=== PATIENT | female | born 1965 | race Caucasian/White ===

== ENCOUNTER 2017-09-16 08:00 | Inpatient (IN) | payer OTHER ==
[2017-09-16] MEDS ORDERED: AMPICILLIN SOD/SULBACTAM 3 GM VIAL IV ONE (08:28)
[2017-09-16] MEDS ORDERED: NORMAL SALINE 1000 ML 1,000 ML IV ONE (08:28)
--- NOTE | 2017-09-16 08:45 | ER Document Report ---
ED General - General Chief Complaint: Facial Swelling Stated Complaint: FACIAL PAIN Time Seen by Provider: 09/16/17 08:21 Mode of Arrival: Ambulatory Information source: Patient Notes: 52-year-old female presents with one-week duration of facial swelling and pain. Patient denies any fevers or chills notes she was seen by her primary care physician initially was given eyedrops. Patient notes that she then started having facial redness and swelling. Patient states that she was then placed on Bactrim and Keflex has taken 5 doses of the Keflex since and has noted worsening rash TRAVEL OUTSIDE OF THE [place] IN LAST 30 DAYS: No - HPI Onset: Last week Onset/Duration: Worse Quality of pain: Burning Severity: Mild Pain Level: 1 Associated symptoms: Other Exacerbated by: Denies Relieved by: Denies Similar symptoms previously: Yes Recently seen / treated by doctor: Yes - Related Data Allergies/Adverse Reactions: No Known Allergies Allergy (Verified 09/16/17 08:01) Past Medical History - Social History Smoking Status: Never Smoker Cigarette use (# per day): No Chew tobacco use (# tins/day): No Smoking Education Provided: No Family History: Reviewed & Not Pertinent - Past Medical History Cardiac Medical History: Reports: Hx Hypertension Denies: Hx Coronary Artery Disease, Hx Heart Attack Pulmonary Medical History: Denies: Hx Asthma, Hx Bronchitis, Hx COPD, Hx Pneumonia Neurological Medical History: Denies: Hx Cerebrovascular Accident, Hx Seizures Musculoskeltal Medical History: Denies Hx Arthritis Past Surgical History: Reports: Hx Section - x2, Hx Cholecystectomy, Hx Hysterectomy. Denies: Hx Pacemaker - Immunizations Hx Diphtheria, Pertussis, Tetanus Vaccination: Yes Hx Pneumococcal Vaccination: 06/25/11 Review of Systems - Review of Systems Notes: REVIEW OF SYSTEMS: CONSTITUTIONAL : Denies fever, chills, or sweats. Denies recent illness. EENT: Denies eye, ear, throat, or mouth pain or symptoms. Denies nasal or sinus congestion or discharge. Denies throat, tongue, or mouth swelling or difficulty swallowing. CARDIOVASCULAR: Denies chest pain. Denies palpitations or racing or irregular heart beat. Denies ankle edema. RESPIRATORY: Denies cough, cold, or chest congestion. Denies shortness of breath, difficulty breathing, or wheezing. GASTROINTESTINAL: Denies abdominal pain or distention. Denies nausea, vomiting , or diarrhea. Denies blood in vomitus, stools, or per rectum. Denies black, tarry stools. Denies constipation. GENITOURINARY: Denies difficulty urinating, painful urination, burning, frequency, blood in urine, or discharge. FEMALE GENITOURINARY: Denies vaginal bleeding, heavy or abnormal periods, irregular periods. Denies vaginal discharge or odor. MUSCULOSKELETAL: Denies back or neck pain or stiffness. Denies joint pain or swelling. SKIN: Admits to facial swelling redness HEMATOLOGIC : Denies easy bruising or bleeding. LYMPHATIC: Denies swollen, enlarged glands. NEUROLOGICAL: Denies confusion or altered mental status. Denies passing out or loss of consciousness. Denies dizziness or lightheadedness. Denies headache. Denies weakness or paralysis or loss of use of either side. Denies problems with gait or speech. Denies sensory loss, numbness, or tingling. Denies seizures. PSYCHIATRIC: Denies anxiety or stress. Denies depression, suicidal ideation, or homicidal ideation. ALL OTHER SYSTEMS REVIEWED AND NEGATIVE. PHYSICAL EXAMINATION: GENERAL: Well-appearing, well-nourished and in no acute distress. HEAD: Atraumatic, normocephalic. EYES: Pupils equal round and reactive to light, extraocular movements intact, conjunctiva are normal. ENT: Nares patent, oropharynx clear without exudates. Moist mucous membranes. NECK: Normal range of motion, supple without lymphadenopathy LUNGS: Breath sounds clear to auscultation bilaterally and equal. No wheezes rales or rhonchi. HEART: Regular rate and rhythm without murmurs ABDOMEN: Soft, nontender, nondistended abdomen. No guarding, no rebound. No masses appreciated. Female : deferred Musculoskeletal: Normal range of motion, no pitting or edema. No cyanosis. NEUROLOGICAL: Cranial nerves grossly intact. Normal speech, normal gait. Normal sensory, motor exams PSYCH: Normal mood, normal affect. SKIN: Bilateral erythema cellulitic component of cheeks mid forehead upper lip across the nose Dictation was performed using [employer] voice recognition software Physical Exam - Vital signs Vitals: Temp Pulse Resp BP Pulse Ox 98.5 F 100 16 101/84 97 09/16/17 08:05 09/16/17 08:05 09/16/17 08:05 09/16/17 08:05 09/16/17 08:05 Course - Re-evaluation Re-evalutation: 09/16/17 11:01 Ct consistent with cellulitis, pt was on her 5th dose of keflex this morning at 2am and noted worsening symptoms , will admit to hospitlaist for iv antiobitics - Vital Signs Vital signs: Temp Pulse Resp BP Pulse Ox 98.5 F 100 16 101/84 97 09/16/17 08:05 09/16/17 08:05 09/16/17 08:05 09/16/17 08:05 09/16/17 08:05 - Laboratory Result Diagrams: 09/16/17 08:40 09/16/17 08:40 Laboratory results interpreted by me: 09/16/17 09/16/17 08:40 08:40 WBC 12.6 H RDW 14.5 H Seg Neutrophils % 79.1 H Lymphocytes % 12.7 L Absolute Neutrophils 9.9 H Chloride 96 L Est GFR (Non-Af Amer) 51 L Glucose 138 H AST 38 H ALT 60 H Discharge - Discharge Clinical Impression: Facial cellulitis Condition: Stable Disposition: ADMITTED INPATIENT Admitting Provider: Hospitalist Unit Admitted: Medical Floor
[2017-09-16 09:19] LABS: ABSOLUTE EOSINOPHILS # (AUTO) 0.1 10^3/uL (0.0-0.6); ABSOLUTE LYMPHOCYTES (AUTO) 1.6 10^3/uL (0.5-4.7); ABSOLUTE MONOCYTES (AUTO) 0.9 10^3/uL (0.1-1.4); ABSOLUTE NEUT (AUTO) 9.9 10^3/uL (1.7-8.2); BASOPHILS % (AUTO) 0.2 % (0-2); EOSINOPHILS % (AUTO) 1.1 % (0-6); HEMOGLOBIN 14.8 g/dL (12.0-15.5); HGB HCT DIFFERENCE 1.4; LYMPHOCYTES % (AUTO) 12.7 % (13-45); MEAN CORPUSCULAR HEMOGLOBIN 30.6 pg (27.0-33.4); MEAN CORPUSCULAR HGB CONC 34.5 g/dL (32.0-36.0); MEAN CORPUSCULAR VOLUME 89 fl (80-97); MONOCYTES % (AUTO) 6.9 % (3-13); RED BLOOD COUNT 4.84 10^6/uL (3.72-5.28); RED CELL DISTRIBUTION WIDTH 14.5 % (11.5-14.0); SEGMENTED NEUTROPHILS % (AUTO) 79.1 % (42-78); WHITE BLOOD COUNT 12.6 10^3/uL (4.0-10.5)
[2017-09-16 09:30] LABS: ALANINE AMINOTRANSFERASE 60 U/L (9-52); ALBUMIN 4.3 g/dL (3.5-5.0); ALKALINE PHOSPHATASE 84 U/L (38-126); ANION GAP 16 (5-19); ASPARTATE AMINO TRANSFERASE 38 U/L (14-36); BILIRUBIN,DIRECT 0.3 mg/dL (0.0-0.4); BILIRUBIN,TOTAL 0.5 mg/dL (0.2-1.3); BLOOD UREA NITROGEN 16 mg/dL (7-20); CALCIUM 9.7 mg/dL (8.4-10.2); CARBON DIOXIDE 25 mmol/L (22-30); CHLORIDE 96 mmol/L (98-107); CREATININE RESULT 1.11 mg/dL (0.52-1.25); GLUCOSE 138 mg/dL (75-110); POTASSIUM 4.1 mmol/L (3.6-5.0); SODIUM 137.4 mmol/L (137-145); TOTAL PROTEIN 7.6 g/dL (6.3-8.2)
--- NOTE | 2017-09-16 10:55 | RADIOLOGY REPORT (SQ) ---
EXAM DESCRIPTION: CT FACIAL AREA WITH COMPLETED DATE/TIME: 09/16/2017 10:38 am REASON FOR STUDY: facial cellulitis COMPARISON: None. TECHNIQUE: Post contrast images through the facial bones and orbits windowed for bone and soft tissu e. Additional coronal and sagittal reconstructed images reviewed. All images stored on PACS. All CT scanners at this facility use dose modulation, iterative reconstruction, and/or weight based d osing when appropriate to reduce radiation dose to as low as reasonably achievable (ALARA). [facility]: Dose Right [facility]: CareDose [facility]: Dose Right [facility]: Teradose 4D [facility]: Callix [place] CONTRAST TYPE AND DOSE: contrast/concentration: Isovue 370.00 mg/ml; Total Contrast Delivered: 75.0 ml; Total Saline Delivered: 55.0 ml RENAL FUNCTION: Creatinine measures 1.11 RADIATION DOSE: CT Rad equipment meets quality standard of care and radiation dose reduction techniq ues were employed. CTDIvol: 30.4 mGy. DLP: 663 mGy-cm. . LIMITATIONS: None. FINDINGS: FACIAL BONES: No fracture or bone lesion. ORBITS: Intact. No fracture. Symmetric intact globes and retroorbital soft tissues. PARANASAL SINUSES: Clear. No significant mucosal thickening, mass or fluid. No nasal polyps. Maxilla ry sinus outlets are patent. SOFT TISSUES: Bilateral premaxillary and periorbital soft tissue swelling without involvement of the deeper soft tissues. INFERIOR BRAIN: Limited view. No acute findings. OTHER: No other significant finding. IMPRESSION: BILATERAL PREMAXILLARY AND PERIORBITAL SOFT TISSUE SWELLING COMPATIBLE WITH CELLULITIS. NO ABSCESS OR INVOLVEMENT OF THE DEEP SOFT TISSUES TECHNICAL DOCUMENTATION: JOB ID: [id number] Quality ID # [id number]: Final reports with documentation of one or more dose reduction techniques (e.g., Au tomated exposure control, adjustment of the mA and/or kV according to patient size, use of iterative reconstruction technique) 2010 [employer]- All Rights Reserved
[2017-09-16] MEDS ORDERED: ONDANSETRON 4 MG TAB.RAPDIS PO PRN (12:37)
[2017-09-16] MEDS ORDERED: LEVALBUTEROL HCL NEB 0.63 MG/3 ML AMPUL NEB PRN (12:37)
[2017-09-16] MEDS ORDERED: ONDANSETRON HCL INJ/PF 4 MG/2 ML SDV IV PRN (12:37)
[2017-09-16] MEDS ORDERED: NORMAL SALINE 1000 ML 1,000 ML IV PRN (12:37)
[2017-09-16] MEDS ORDERED: ACETAMINOPHEN 325 MG TABLET PO PRN (12:37)
--- NOTE | 2017-09-16 12:55 | PDOC H&P ---
History of Present Illness Admission Date/PCP: 09/16/17 11:13 ELMIRA HUNT DO Patient complains of: Redness and swelling of the face History of Present Illness: ROMARIO AREVALO is a 52 year old female who has a history of hypertension who presented to her primary care doctor on Monday with complaints of some redness and swelling on the malar area of her face bilaterally. Patient was started on Bactrim and Keflex and was sent home. Since that time she has had worsening redness and swelling. She presents and has significant soft tissue swelling and this is involving the entire nose, bilateral malar area as well as the bridge of the nose and forehead. He also reports having some low-grade fevers. She has been taking her antibiotics. She also does take lisinopril but denies having any shortness of breath or airway obstruction symptoms. Patient is admitted for treatment of facial cellulitis possible erysipelas. Past Medical History Cardiac Medical History: Reports: Hyperlipidema, Hypertension Denies: Coronary Artery Disease, Myocardial Infarction Pulmonary Medical History: Denies: Asthma, Bronchitis, Chronic Obstructive Pulmonary Disease (COPD), Pneumonia EENT Medical History: Reports: None Neurological Medical History: Reports: None Endocrine Medical History: Reports: None Renal/ Medical History: Reports: None Malignancy Medical History: Reports: None GI Medical History: Reports: None Musculoskeltal Medical History: Denies: Arthritis Skin Medical History: Reports: None Psychiatric Medical History: Reports: None Traumatic Medical History: Reports: None Hematology: Reports: None Denies: Anemia Infectious Medical History: Reports: None Past Surgical History Past Surgical History: Reports: Section - x2, Cholecystectomy, Hysterectomy Denies: Pacemaker Social History Information Source: Patient Lives with: Spouse/Significant other Smoking Status: Never Smoker Frequency of Alcohol Use: Rare Hx Recreational Drug Use: No Drugs: None Hx Prescription Drug Abuse: No - Advance Directive Resuscitation Status: Full Code Surrogate healthcare decision maker:: Family History Family History: Mother at age 65 from COPD and cancer. Father at age 46 from coronary artery disease. Parental Family History Reviewed: Yes Children Family History Reviewed: No Sibling(s) Family History Reviewed.: No Medication/Allergy Home Medications: Aspirin [Aspirin 81 mg Chewable Tablet] 81 mg PO DAILY 09/05/12 Cinnamon Bark [Cinnamon Bark 500 mg Capsule] 2 cap PO DAILY 09/05/12 [place]-3/Dha/Epa/Fish Oil [Fish Oil 1,000 mg Softgel] 4 cap PO DAILY 09/05/12 Ibuprofen [Motrin 800 Mg Tablet] 800 mg PO Q8H PRN 09/12/12 Meloxicam [Mobic 15 mg Tablet] 15 mg PO DAILY 12/05/16 Phentermine HCl 37.5 mg PO DAILY 12/05/16 Cyanocobalamin (Vitamin B-12) [B-12] 1,000 mcg PO DAILY 12/06/16 Lisinopril 10 mg PO DAILY 12/06/16 Mv,Calcium,Min/Iron/Folic/Vitk [Multi For Her Tablet] 1 each PO DAILY 12/06/16 Allergies/Adverse Reactions: No Known Allergies Allergy (Verified 09/16/17 08:01) Review of Systems Constitutional: PRESENT: fever(s). ABSENT: chills, headache(s), weight gain, weight loss Eyes: ABSENT: visual disturbances Nose, Mouth, and Throat: PRESENT: other - Facial swelling and erythema Cardiovascular: ABSENT: chest pain, dyspnea on exertion, edema, orthropnea, palpitations Respiratory: ABSENT: cough, hemoptysis Gastrointestinal: ABSENT: abdominal pain, constipation, diarrhea, hematemesis, hematochezia, nausea, vomiting Genitourinary: ABSENT: dysuria, hematuria Musculoskeletal: ABSENT: joint swelling Integumentary: PRESENT: as per HPI Neurological: ABSENT: abnormal gait, abnormal speech, confusion, dizziness, focal weakness, syncope Psychiatric: ABSENT: anxiety, depression Endocrine: ABSENT: cold intolerance, heat intolerance, polydipsia, polyuria Hematologic/Lymphatic: ABSENT: easy bleeding, easy bruising Physical Exam Vital Signs: Temp Pulse Resp BP Pulse Ox 97.6 F 79 18 108/66 100 09/16/17 12:11 09/16/17 12:11 09/16/17 12:11 09/16/17 12:11 09/16/17 12:11 Intake & Output 09/15/17 09/16/17 09/17/17 06:59 06:59 06:59 Weight 79 kg General appearance: PRESENT: no acute distress, well-developed, well-nourished Head exam: PRESENT: atraumatic, normocephalic Eye exam: PRESENT: conjunctiva pink, EOMI, periorbital swelling, PERRLA. ABSENT : scleral icterus Ear exam: PRESENT: normal external ear exam Mouth exam: PRESENT: moist, tongue midline Neck exam: ABSENT: carotid bruit, JVD, lymphadenopathy, thyromegaly Respiratory exam: PRESENT: clear to auscultation chelle. ABSENT: rales, rhonchi, wheezes Cardiovascular exam: PRESENT: RRR. ABSENT: diastolic murmur, rubs, systolic murmur Pulses: PRESENT: normal dorsalis pedis pul Vascular exam: PRESENT: normal capillary refill GI/Abdominal exam: PRESENT: normal bowel sounds, soft. ABSENT: distended, guarding, mass, organolmegaly, rebound, tenderness Rectal exam: PRESENT: deferred Extremities exam: ABSENT: calf tenderness, clubbing, pedal edema Neurological exam: PRESENT: alert, awake, oriented to person, oriented to place , oriented to time, oriented to situation, CN II-XII grossly intact. ABSENT: motor sensory deficit Psychiatric exam: PRESENT: appropriate affect Skin exam: PRESENT: vesicles - Vesicles on the right malar area, other - Erythema and swelling involving the entire nose, bilateral malar area, bridge of nose, mid forehead region. Results Impressions: Facial Bones CT 09/16/17 08:28 IMPRESSION: BILATERAL PREMAXILLARY AND PERIORBITAL SOFT TISSUE SWELLING COMPATIBLE WITH CELLULITIS. NO ABSCESS OR INVOLVEMENT OF THE DEEP SOFT TISSUES Assessment & Plan - Diagnosis (1) Facial cellulitis Is this a current diagnosis for this admission?: Yes Plan: The patient has a lot of soft tissue swelling in addition to the erythema. Suspicious for erysipelas. Will treat with Unasyn and steroids. Because she does take an LILI inhibitor the possibility of angioedema is considered but is unlikely. We will hold her LILI inhibitor for now. (2) Hypertension Is this a current diagnosis for this admission?: Yes Plan: We will hold the lisinopril and start another blood pressure medication if her pressures are up. (3) Hyperlipidemia Is this a current diagnosis for this admission?: Yes Plan: Patient takes fish oil as an outpatient. - Time Time Spent: 50 to 70 Minutes - Inpatient Certification Medical Necessity: Need for IV Antibiotics
[2017-09-16] MEDS: OXYCODONE HCL IR 5 MG TABLET PO PRN ×2 (13:06→21:21)
[2017-09-16] MEDS: METHYLPREDNISOLONE INJ 40 MG/1 ML SDV IV SCH ×2 (13:12→21:21)
[2017-09-16] MEDS: AMPICILLIN SODIUM/SULBACTAM NA 1.5 GM in NORMAL SALINE 50 ML IV SCH ×2 (17:15→23:54)
[2017-09-16] MEDS: FAMOTIDINE 20 MG TABLET PO SCH (21:21)
[2017-09-17 05:18] LABS: ANION GAP 10 (5-19); BLOOD UREA NITROGEN 15 mg/dL (7-20); CALCIUM 9.1 mg/dL (8.4-10.2); CARBON DIOXIDE 23 mmol/L (22-30); CHLORIDE 106 mmol/L (98-107); CREATININE RESULT 0.93 mg/dL (0.52-1.25); GLUCOSE 207 mg/dL (75-110); SODIUM 138.9 mmol/L (137-145)
[2017-09-17] MEDS: AMPICILLIN SODIUM/SULBACTAM NA 1.5 GM in NORMAL SALINE 50 ML IV SCH ×2 (05:26→11:23)
[2017-09-17] MEDS: METHYLPREDNISOLONE INJ 40 MG/1 ML SDV IV SCH (05:27)
[2017-09-17 05:32] LABS: HEMOGLOBIN 13.6 g/dL (12.0-15.5); HGB HCT DIFFERENCE 0.8; MEAN CORPUSCULAR HEMOGLOBIN 29.9 pg (27.0-33.4); MEAN CORPUSCULAR VOLUME 88 fl (80-97); RED BLOOD COUNT 4.54 10^6/uL (3.72-5.28); RED CELL DISTRIBUTION WIDTH 14.1 % (11.5-14.0); WHITE BLOOD COUNT 15.3 10^3/uL (4.0-10.5)
[2017-09-17] MEDS ORDERED: DEXTROSE 40% GEL 15 GM TUBE PO PRN ×2 (07:27)
[2017-09-17] MEDS ORDERED: INSULIN LISPRO 100 UNIT/ML 3 ML VIAL SUBCUT PRN (07:27)
[2017-09-17] MEDS ORDERED: DEXTROSE 50%-WATER 25 GM/50 ML DISP.SYRIN IV PRN ×2 (07:27)
[2017-09-17] MEDS ORDERED: GLUCAGON,HUMAN RECOMB 1 MG INJ IM PRN (07:27)
[2017-09-17 08:10] VITALS: BP 115/66
[2017-09-17] MEDS: FAMOTIDINE 20 MG TABLET PO SCH (09:20)
--- NOTE | 2017-09-17 13:51 | PDOC DISCHARGE SUMMARY ---
General - Admit/Disc Date/PCP Admission Date/Primary Care Provider: 09/16/17 11:13 ELMIRA HUNT, Discharge Date: 09/17/17 - Discharge Diagnosis (1) Facial cellulitis Is this a current diagnosis for this admission?: Yes (2) Hypertension Is this a current diagnosis for this admission?: Yes (3) Hyperlipidemia Is this a current diagnosis for this admission?: Yes - Additional Information Resuscitation Status: Full Code Discharge Diet: Diabetic Discharge Activity: Activity As Tolerated Prescriptions: Amoxicillin/Potassium Clav [Augmentin 875-125 Tablet] 1 each PO BID #20 tablet Prednisone 10 mg PO DAILY #39 tablet Home Medications: Aspirin [Aspirin 81 mg Chewable Tablet] 81 mg PO DAILY 09/16/17 Cinnamon Bark [Cinnamon Bark 500 mg Capsule] 500 mg PO DAILY 09/16/17 Cyanocobalamin (Vitamin B-12) [Vitamin B-12 1000 mcg Tablet] 1,000 mcg PO DAILY 09/16/17 Multivit with Calcium,Iron,Min [Multiple Vitamins For Women] 1 each PO DAILY [place]-3 Fatty Acids/Fish Oil [Fish Oil 1,000 mg Capsule] 4 cap PO DAILY Phentermine HCl 37.5 mg PO DAILY 09/16/17 Amoxicillin/Potassium Clav [Augmentin 875-125 Tablet] 1 each PO BID #20 tablet 09/17/17 Prednisone 10 mg PO DAILY #39 tablet 09/17/17 History of Present Illness History of Present Illness: ROMARIO AREVALO is a 52 year old female who has a history of hypertension who presented to her primary care doctor on Monday with complaints of some redness and swelling on the malar area of her face bilaterally. Patient was started on Bactrim and Keflex and was sent home. Since that time she has had worsening redness and swelling. She presents and has significant soft tissue swelling and this is involving the entire nose, bilateral malar area as well as the bridge of the nose and forehead. He also reports having some low-grade fevers. She has been taking her antibiotics. She also does take lisinopril but denies having any shortness of breath or airway obstruction symptoms. Patient is admitted for treatment of facial cellulitis possible erysipelas. Hospital Course Hospital Course: 52-year-old female who presented with facial cellulitis and possible erysipelas. The patient was started on Unasyn and Solu-Medrol. She had a dramatic improvement in her facial swelling and redness overnight. She had cultures done which are negative so far. Patient has had such a quick improvement feel that she is stable for discharge to home on a course of Augmentin and prednisone. The patient had the lisinopril stopped because the possibility of allergic reaction I have instructed her to hold that until she follows up with her primary care doctor decide whether or not to restart that. Patient also was noted to have elevated blood sugars most likely associated with the steroids. Patient is follow-up with primary care in 2 weeks. Physical Exam Vital Signs: Temp Pulse Resp BP Pulse Ox 97.5 F 78 18 115/66 99 09/17/17 07:38 09/17/17 07:38 09/17/17 07:38 09/17/17 07:38 09/17/17 07:38 Intake & Output 09/16/17 09/17/17 09/18/17 06:59 06:59 06:59 Intake Total 3092 Balance 3092 Weight 79 kg General appearance: PRESENT: no acute distress Eye exam: PRESENT: conjunctiva pink. ABSENT: scleral icterus Neck exam: ABSENT: JVD Respiratory exam: PRESENT: clear to auscultation chelle. ABSENT: rales, rhonchi, wheezes Cardiovascular exam: PRESENT: RRR. ABSENT: diastolic murmur, rubs, systolic murmur GI/Abdominal exam: PRESENT: normal bowel sounds, soft. ABSENT: distended, guarding, mass, organolmegaly, rebound, tenderness Neurological exam: PRESENT: alert, awake, oriented to person, oriented to place , oriented to time, oriented to situation, CN II-XII grossly intact. ABSENT: motor sensory deficit Psychiatric exam: PRESENT: appropriate affect Skin exam: PRESENT: other - Erythema over the entire nose, malar area bilaterally as well as mid forehead. It is substantially reduced from yesterday. Results Laboratory Results: 09/17/17 04:25 09/17/17 04:25 09/17/17 09/17/17 04:25 04:25 WBC 15.3 H RBC 4.54 Hgb 13.6 Hct 40.0 MCV 88 MCH 29.9 MCHC 34.0 RDW 14.1 H Plt Count 189 Sodium 138.9 Potassium 5.0 Chloride 106 Carbon Dioxide 23 Anion Gap 10 BUN 15 Creatinine 0.93 Est GFR ( Amer) > 60 Est GFR (Non-Af Amer) > 60 Glucose 207 H Calcium 9.1 Impressions: Facial Bones CT 09/16/17 08:28 IMPRESSION: BILATERAL PREMAXILLARY AND PERIORBITAL SOFT TISSUE SWELLING COMPATIBLE WITH CELLULITIS. NO ABSCESS OR INVOLVEMENT OF THE DEEP SOFT TISSUES Qualifiers [place]INT BEING DISCHARGED WITH ANY OF THE FOLLOWING DIAGNOSIS?: No Plan Discharge Plan: Patient follow-up with primary care in 2 weeks. Patient discharged home Time Spent: Less than 30 Minutes
== END 2017-09-17 12:50 | disposition home or self-care (01) | DRG 603 ==
LOC: ER 08:00 → EH 11:13 → 4S 12:10
PROVIDERS: ADMIT Internal Medicine; ATTEND Internal Medicine
DX: L03.211 Cellulitis of face (principal); I10 Essential (primary) hypertension; E78.5 Hyperlipidemia, unspecified; Z79.82 Long term (current) use of aspirin; Z79.899 Other long term (current) drug therapy; Z90.49 Acquired absence of other specified parts of digestive tract; Z90.710 Acquired absence of both cervix and uterus; Z82.49 Family history of ischemic heart disease and other diseases of the circulatory system
CPT/HCPCS: 36415; 70487; 80048; 80053; 82962; 85025; 85027; 96365; 99285; J0295; J1815; J2920; J7030

== ENCOUNTER → 2019-02-01 | Outpatient (CLI) | payer OTHER ==
--- NOTE | 2019-02-01 13:27 | RADIOLOGY REPORT (SQ) ---
EXAM DESCRIPTION: FOOT LEFT COMPLETE COMPLETED DATE/TIME: 02/01/2019 12:09 pm REASON FOR STUDY: M84.375A STRESS FRACTURE, LEFT FOOT, INITIAL ENCOUNTER FOR FRACTURE M84.375A STRE SS FRACTURE, LEFT FOOT, INITIAL ENCOUNTER FOR F COMPARISON: None. NUMBER OF VIEWS: Three views. TECHNIQUE: AP, lateral and oblique radiographic images acquired of the left foot. LIMITATIONS: None. FINDINGS: MINERALIZATION: Normal. BONES: No acute fracture or dislocation. Bipartite tibial sesamoid bone overlies the head of the fir st metatarsal bone, normal anatomic variant. Accessory cuboid bone, normal variant. Calcaneal spurs . JOINTS: No effusions. SOFT TISSUES: No soft tissue swelling. No foreign body. OTHER: No other significant finding. IMPRESSION: 1. No acute osseous findings. 2. Calcaneal spurs. TECHNICAL DOCUMENTATION: JOB ID: [id number] [employer]- All Rights Reserved Reading location - IP/workstation name: [email or web address]
== END ==
LOC: RAD 11:43
PROVIDERS: ATTEND Podiatrist Foot & Ankle Surgery
DX: M84.375A Stress fracture, left foot, initial encounter for fracture (principal)

== ENCOUNTER → 2019-08-02 | Outpatient (CLI) | payer OTHER ==
--- NOTE | 2019-08-02 13:44 | WOMENS IMAGING REPORT ---
EXAM DESCRIPTION: BILAT SCREENING MAMMO W/CAD COMPLETED DATE/TIME: 08/02/2019 1:31 pm REASON FOR STUDY: Z12.31 SCREENING MAMMO Z12.31 ENCNTR SCREEN MAMMOGRAM FOR MALIGNANT NEOPLASM OF B RE COMPARISON: None. EXAM PARAMETERS: Standard craniocaudal and mediolateral oblique views of each breast recorded using digital acquisition. Read with the assistance of CAD. .[facility] - [employer] Brake [employer]iner Version 9.2 LIMITATIONS: None. FINDINGS: No suspicious masses, suspicious calcifications or architectural distortion. No areas of c oncern. IMPRESSION: Negative MAMMOGRAM. BIRADS 1 BREAST DENSITY: a. The breasts are almost entirely fatty. BIRAD: ASSESSMENT: 1 NEGATIVE RECOMMENDATION: ROUTINE SCREENING COMMENT: The patient has been notified of the results by letter per MQSA requirements. Additional no tification policies are in place for contacting patient with suspicious or incomplete findings. Quality ID #225: The [employer] recommends an annual screening mammogram for women aged 40 years or over. This facility utilizes a reminder system to ensure that all patients receive reminder letters, and/or direct phone calls for appointments. This includes reminders for routine scr eening mammograms, diagnostic mammograms, or other Breast Imaging Interventions when appropriate. Th is patient will be placed in the appropriate reminder system. TECHNICAL DOCUMENTATION: FINDING NUMBER: (1) ASSESSMENT: (1) JOB ID: [id number] [email or web address]- All Rights Reserved Reading location - IP/workstation name: [email or web address]
== END ==
LOC: WI 13:10
PROVIDERS: ATTEND Family Medicine
DX: Z12.31 Encounter for screening mammogram for malignant neoplasm of breast (principal)
CPT/HCPCS: 77067

== ENCOUNTER → 2019-10-05 | Outpatient (CLI) | payer OTHER ==
--- NOTE | 2019-10-05 13:54 | RADIOLOGY REPORT (SQ) ---
EXAM DESCRIPTION: MRI LT LOWER EXTREMITY WITHOUT COMPLETED DATE/TIME: 10/05/2019 8:47 am REASON FOR STUDY: S93.149D SUBLUXATION OF METATARSOPHALANGEAL JOINT OF UNSECIFIED TOE S93.149D SUBL UXATION OF MTP JOINT OF UNSP TOE(S), SUBS COMPARISON: None. TECHNIQUE: T1-weighted, T2-weighted, and gradient echo noncontrast multiplanar imaging of the left f oot. LIMITATIONS: None. FINDINGS: MARROW SIGNAL: No marrow signal alteration. No occult fracture. No evidence for osteo ne crosis. JOINT EFFUSION: No significant effusions. PLANTAR FASCIA: Normal as visualized. TARSOMETATARSAL AND TOE ARTICULATIONS: Anatomic. Mild degenerative changes first metatarsal phalange al joint. Includes minimal edema in the medial hallux sesamoid which is likely degenerative with tin y cysts. INTERMETATARSAL SPACES AND PLANTAR PLATES: Generally normal. No evidence of neuroma or gross plantar plate tear. SOFT TISSUES: No masses. No fibrosis. OTHER: No other significant finding. IMPRESSION: 1. Plantar plates intact. No neuroma. Mild great toe degenerative changes. TECHNICAL DOCUMENTATION: JOB ID: [id number] [employer]- All Rights Reserved Reading location - IP/workstation name: [email or web address]
== END ==
LOC: RAD 07:58
PROVIDERS: ATTEND Podiatrist Foot & Ankle Surgery
DX: S93.149D Subluxation of metatarsophalangeal joint of unspecified toe(s), subsequent encounter (principal); X58.XXXD Exposure to other specified factors, subsequent encounter

== ENCOUNTER → 2020-08-07 | Outpatient (CLI) | payer MEDICAID, OTHER ==
--- NOTE | 2020-08-07 10:11 | WOMENS IMAGING REPORT ---
EXAM DESCRIPTION: 3D SCREENING MAMMO BILAT IMAGES COMPLETED DATE/TIME: 08/07/2020 7:34 am REASON FOR STUDY: ROUTINE BILATERAL SCREENING;Z12.31 Z12.31 ENCNTR SCREEN MAMMOGRAM FOR MALIGNANT N EOPLASM OF LC COMPARISON: 2018. EXAM PARAMETERS: Views: Standard craniocaudal and mediolateral oblique views of each breast recorded using digital acquisition and breast tomosynthesis. Read with the assistance of CAD. [facility] - [employer] Version 9.2 LIMITATIONS: None. FINDINGS: No suspicious masses, suspicious calcifications or architectural distortion. No areas of c oncern. IMPRESSION: NEGATIVE MAMMOGRAM. BIRADS 1. BREAST DENSITY: b. There are scattered areas of fibroglandular density. BIRAD: ASSESSMENT: 1 NEGATIVE RECOMMENDATION: ROUTINE SCREENING COMMENT: The patient has been notified of the results by letter per MQSA requirements. Additional no tification policies are in place for contacting patient with suspicious or incomplete findings. Quality ID #225: The [employer] recommends an annual screening mammogram for women aged 40 years or over. This facility utilizes a reminder system to ensure that all patients receive reminder letters, and/or direct phone calls for appointments. This includes reminders for routine scr eening mammograms, diagnostic mammograms, or other Breast Imaging Interventions when appropriate. Th is patient will be placed in the appropriate reminder system. TECHNICAL DOCUMENTATION: FINDING NUMBER: (1) ASSESSMENT: (1) JOB ID: [id number] 2010 [email or web address]- All Rights Reserved Reading location - IP/workstation name: [email or web address]
--- OUTSIDE RECORDS SUMMARY | 2020-08-10 09:36 | XMS REPORT ---
:1965 Author Organization [facility] Address [facility] [address] [place] [address] Care Team Providers Name Role Phone ELMIRA GUILLEN Primary Care Physician Unavailable Elmira Guillen Attending Clinician Unavailable Elmira Guillen Attending Clinician Unavailable Allergies, Adverse Reactions, Alerts This patient has no known allergies or adverse reactions. Medications Ordered Filled Start Stop Current Ordering Indication Dosage Frequency Signature Comments Components Medication Medication Date Date Medication? Clinician (SIG) Name Name losartan 25 No losartan mg tablet 25 mg tablet losartan 50 No losartan mg tablet 50 mg tablet metformin No metformin 500 mg 500 mg tablet tablet metformin No metformin ER 500 mg ER 500 mg tablet,exte tablet,ext nded ended release 24 release 24 hr hr omega 3 500 No omega 3 mg-dha-epa- 500 B12 500 mg-dha-epa mcg-FA 1 -B12 500 mg-B6 12.5 mcg-FA 1 mg-phytoste mg-B6 12.5 rol cap mg-phytost crissy cap phentermine No phentermin 37.5 mg e 37.5 mg tablet TAKE tablet 1 TABLET BY TAKE 1 MOUTH ONCE TABLET BY DAILY MOUTH ONCE BEFORE DAILY BREAKFAST BEFORE BREAKFAST valacyclovi No valacyclov r 1 gram ir 1 gram tablet tablet atorvastati No atorvastat n 20 mg in 20 mg tablet tablet Cinnamon No Cinnamon 500 mg 500 mg capsule capsule ibuprofen No ibuprofen 800 mg 800 mg tablet tablet Problems This patient has no known problems. Procedures Procedure Date / Time Performed Performing Clinician Mikey francois OFFICE/OUTPATIENT VISIT EST 2020-07-28 13:00:00 OFFICE/OUTPATIENT VISIT EST 2018-12-25 08:00:00 OFFICE/OUTPATIENT VISIT EST 2018-09-20 08:00:00 HEMOGLOBIN A1C LEVEL < 7.0% 2018-09-20 08:00:00 OFFICE/OUTPATIENT VISIT EST 2017-05-15 08:15:00 Hysterectomy 2011-09-25 00:00:00 Cholecystectomy 1995-09-25 00:00:00 Results Test Description Test Time Test Comments Text Results Atomic Results Result Comments Hemoglobin A1C\S\ 2020-07-28 13:00:00 Test Item Value Reference Range Comments HgbA1C, Fingerstick (test code = 4548-4) 9.3 % 4-5.6 CBC (H/H, RBC, INDICES, WBC, PLT)2020-07-28 00:00:00 Test Item Value Reference Range Comments PLATELET COUNT (test code = 35915550) 194 Thousand/uL 140-400 MPV (test code = 14347952) 11.4 fL 7.5-12.5 RDW (test code = 16476599) 13.8 % 11.0-15.0 HEMATOCRIT (test code = 29053573) 45.0 % 35.0-45.0 MCHC (test code = 58367129) 33.3 g/dL 32.0-36.0 HEMOGLOBIN (test code = 33021571) 15.0 g/dL 11.7-15.5 WHITE BLOOD CELL COUNT (test code = 9.3 Thousand/uL 3.8-10.8 82596785) MCV (test code = 30439685) 88.9 fL 80.0-100.0 RED BLOOD CELL COUNT (test code = 21542712) 5.06 Million/uL 3.80 -5.10 MCH (test code = 20518762) 29.6 pg 27.0-33.0 COMPREHENSIVE METABOLIC [id number] 00:00:00 Test Item Value Reference Range Comments eGFR (test code = 84 mL/min/1.73m2 > OR = 60 47263196) POTASSIUM (test code = 05853914) 4.2 mmol/L 3.5-5.3 CARBON DIOXIDE (test code = 01609262) 28 mmol/L 20-32 ALKALINE PHOSPHATASE (test code = 64 U/L 37-153 48529233) GLUCOSE (test code = 99533673) 153 mg/dL 65-99 BILIRUBIN, TOTAL (test code = 0.7 mg/dL 0.2-1.2 39636816) BUN/CREATININE RATIO (test code = NOT APPLICABLE (calc) 6-22 22966350) SODIUM (test code = 07890800) 141 mmol/L 135-146 CALCIUM (test code = 34926795) 10.6 mg/dL 8.6-10.4 PROTEIN, TOTAL (test code = 23527475) 7.6 g/dL 6.1-8.1 AST (test code = 58401202) 66 U/L 10-35 CHLORIDE (test code = 06617834) 102 mmol/L 98-110 UREA NITROGEN (BUN) (test code = 15 mg/dL 7-25 11661553) CREATININE (test code = 26701579) 0.89 mg/dL 0.50-1.05 ALT (test code = 17273962) 63 U/L 6-29 ALBUMIN/GLOBULIN RATIO (test code = 1.6 (calc) 1.0-2.5 96497874) GLOBULIN (test code = 86058019) 2.9 g/dL (calc) 1.9-3.7 ALBUMIN (test code = 27455610) 4.7 g/dL 3.6-5.1 eGFR NON-AFR. TURKMEN (test code = 72 mL/min/1.73m2 > OR = 60 25713728) LIPID PANEL WITH REFLEX TO DIRECT [id number] 00:00:00 Test Item Value Reference Range Comments NON HDL CHOLESTEROL (test code = 01714570) 117 mg/dL (calc) <130 CHOL/HDLC RATIO (test code = 27637451) 3.7 (calc) <5.0 LDL-CHOLESTEROL (test code = 73337916) 89 mg/dL (calc) HDL CHOLESTEROL (test code = 33911390) 44 mg/dL > OR = 50 TRIGLYCERIDES (test code = 65210023) 185 mg/dL <150 CHOLESTEROL, TOTAL (test code = 76143861) 161 mg/dL <200 ALBUMIN, RANDOM URINE [id number] 00:00:00 Test Item Value Reference Range Comments CREATININE, RANDOM URINE (test code = 123 mg/dL 20-275 59761898) ALBUMIN, URINE (test code = 82355318) 0.4 mg/dL ALBUMIN/CREATININE RATIO, RANDOM URINE (test 3 mcg/mg creat <30 code = 10958171) [id number] 00:00:[id number] 08:47:001.31COMPREHENSIVE METABOLIC [id number] 08:47:00 Test Item Value Reference Range Comments PROTEIN, TOTAL (test code = 59841823) 6.9 g/dL 6.1-8.1 AST (test code = 55875737) 27 U/L 10-35 ALBUMIN/GLOBULIN RATIO (test code = 1.8 (calc) 1.0-2.5 02160954) GLUCOSE (test code = 77354759) 124 mg/dL 65-99 POTASSIUM (test code = 46336185) 3.7 mmol/L 3.5-5.3 UREA NITROGEN (BUN) (test code = 16 mg/dL 7-25 56550824) CALCIUM (test code = 04332500) 9.3 mg/dL 8.6-10.4 eGFR NON-AFR. TURKMEN (test code = 74 mL/min/1.73m2 > OR = 60 32105590) GLOBULIN (test code = 84136010) 2.5 g/dL (calc) 1.9-3.7 BUN/CREATININE RATIO (test code = NOT APPLICABLE (calc) 6-22 67175476) SODIUM (test code = 99201097) 142 mmol/L 135-146 ALBUMIN (test code = 69971446) 4.4 g/dL 3.6-5.1 ALT (test code = 55046350) 39 U/L 6-29 eGFR (test code = 86 mL/min/1.73m2 > OR = 60 88305811) ALKALINE PHOSPHATASE (test code = 63 U/L 33-130 81031940) CARBON DIOXIDE (test code = 87612013) 28 mmol/L 20-32 CREATININE (test code = 37516808) 0.88 mg/dL 0.50-1.05 BILIRUBIN, TOTAL (test code = 0.5 mg/dL 0.2-1.2 50069626) CHLORIDE (test code = 30033472) 105 mmol/L 98-110 LIPID PANEL WITH REFLEX TO DIRECT [id number] 08:47:00 Test Item Value Reference Range Comments CHOLESTEROL, TOTAL (test code = 32053720) 128 mg/dL <200 TRIGLYCERIDES (test code = 80835744) 115 mg/dL <150 HDL CHOLESTEROL (test code = 83411477) 45 mg/dL >50 LDL-CHOLESTEROL (test code = 74393687) 63 mg/dL (calc) NON HDL CHOLESTEROL (test code = 40603076) 83 mg/dL (calc) <130 CHOL/HDLC RATIO (test code = 92639806) 2.8 (calc) <5.0 MICROALBUMIN, RANDOM URINE (W/CREATININE)2018-12-25 08:47:00 Test Item Value Reference Range Comments MICROALBUMIN (test code = 95675951) 0.6 mg/dL CREATININE, RANDOM URINE (test code = 222 mg/dL 20-275 54844062) MICROALBUMIN/CREATININE RATIO, RANDOM URINE 3 mcg/mg creat <30 (test code = 60228088) CBC (INCLUDES DIFF/PLT)2018-12-25 08:47:00 Test Item Value Reference Range Comments MONOCYTES (test code = 02670996) 6.4 % LYMPHOCYTES (test code = 43712356) 27.8 % HEMATOCRIT (test code = 58857449) 42.5 % 35.0-45.0 BASOPHILS (test code = 40762157) 0.6 % ABSOLUTE MONOCYTES (test code = 78956048) 448 cells/uL 200-95 0 ABSOLUTE NEUTROPHILS (test code = 39030727) 4417 cells/uL 1500 -7800 MCHC (test code = 57396820) 35.1 g/dL 32.0-36.0 ABSOLUTE EOSINOPHILS (test code = 94000461) 147 cells/uL 15-5 00 PLATELET COUNT (test code = 64497337) 176 Thousand/uL 140-400 ABSOLUTE LYMPHOCYTES (test code = 84920639) 1946 cells/uL 850- 3900 RED BLOOD CELL COUNT (test code = 37848621) 4.91 Million/uL 3.80 -5.10 MCH (test code = 57348771) 30.3 pg 27.0-33.0 HEMOGLOBIN (test code = 29025105) 14.9 g/dL 11.7-15.5 WHITE BLOOD CELL COUNT (test code = 7.0 Thousand/uL 3.8-10.8 89683858) ABSOLUTE BASOPHILS (test code = 61569317) 42 cells/uL 0-200 RDW (test code = 24342080) 13.4 % 11.0-15.0 EOSINOPHILS (test code = 70105955) 2.1 % MCV (test code = 29582331) 86.6 fL 80.0-100.0 MPV (test code = 97445385) 10.7 fL 7.5-12.5 NEUTROPHILS (test code = 47696614) 63.1 % Hemoglobin A1C\S\2018-12-25 08:00:00 Test Item Value Reference Range Comments HgbA1C, Fingerstick (test code = 4548-4) 6.3 % 4-5.6 LIPID PANEL WITH REFLEX TO DIRECT [id number] 08:37:00 Test Item Value Reference Range Comments LDL-CHOLESTEROL (test code = 03336587) 143 mg/dL (calc) NON HDL CHOLESTEROL (test code = 66255070) 190 mg/dL (calc) <130 HDL CHOLESTEROL (test code = 52170301) 37 mg/dL >50 CHOLESTEROL, TOTAL (test code = 46545300) 227 mg/dL <200 CHOL/HDLC RATIO (test code = 96490076) 6.1 (calc) <5.0 TRIGLYCERIDES (test code = 84584442) 303 mg/dL <150 CBC (H/H, RBC, INDICES, WBC, PLT)2018-09-20 08:37:00 Test Item Value Reference Range Comments HEMOGLOBIN (test code = 90171061) 14.9 g/dL 11.7-15.5 RED BLOOD CELL COUNT (test code = 48356863) 4.97 Million/uL 3.80 -5.10 MCH (test code = 32605160) 30.0 pg 27.0-33.0 HEMATOCRIT (test code = 51988424) 43.2 % 35.0-45.0 PLATELET COUNT (test code = 48665890) 204 Thousand/uL 140-400 MPV (test code = 50046079) 10.5 fL 7.5-12.5 RDW (test code = 37429081) 13.5 % 11.0-15.0 MCHC (test code = 26320914) 34.5 g/dL 32.0-36.0 WHITE BLOOD CELL COUNT (test code = 7.6 Thousand/uL 3.8-10.8 89838792) MCV (test code = 90662957) 86.9 fL 80.0-100.0 COMPREHENSIVE METABOLIC [id number] 08:37:00 Test Item Value Reference Range Comments CREATININE (test code = 05067378) 0.88 mg/dL 0.50-1.05 CALCIUM (test code = 74882738) 9.3 mg/dL 8.6-10.4 CARBON DIOXIDE (test code = 50410220) 29 mmol/L 20-32 BILIRUBIN, TOTAL (test code = 0.5 mg/dL 0.2-1.2 65787764) GLUCOSE (test code = 73471734) 143 mg/dL 65-99 ALKALINE PHOSPHATASE (test code = 62 U/L 33-130 68703144) BUN/CREATININE RATIO (test code = NOT APPLICABLE (calc) 6-22 69497819) CHLORIDE (test code = 50709767) 102 mmol/L 98-110 eGFR (test code = 86 mL/min/1.73m2 > OR = 60 47525979) ALT (test code = 05649074) 47 U/L 6-29 ALBUMIN (test code = 66477471) 4.2 g/dL 3.6-5.1 SODIUM (test code = 94264376) 139 mmol/L 135-146 UREA NITROGEN (BUN) (test code = 14 mg/dL 7-25 09412369) GLOBULIN (test code = 31302501) 2.9 g/dL (calc) 1.9-3.7 POTASSIUM (test code = 40415871) 4.2 mmol/L 3.5-5.3 eGFR NON-AFR. TURKMEN (test code = 74 mL/min/1.73m2 > OR = 60 45700697) PROTEIN, TOTAL (test code = 44110091) 7.1 g/dL 6.1-8.1 ALBUMIN/GLOBULIN RATIO (test code = 1.4 (calc) 1.0-2.5 85830065) AST (test code = 59809801) 27 U/L 10-35 MICROALBUMIN, RANDOM URINE (W/CREATININE)2018-09-20 08:37:00 Test Item Value Reference Range Comments MICROALBUMIN (test code = 77296272) 0.5 mg/dL CREATININE, RANDOM URINE (test code = 128 mg/dL 20-275 97500814) MICROALBUMIN/CREATININE RATIO, RANDOM URINE 4 mcg/mg creat <30 (test code = 41325216) [id number] 08:37:[id number] 08:37:001.68Hemoglobin A1C\S\ 2018-09-20 08:00:00 Test Item Value Reference Range Comments HgbA1C, Fingerstick (test code = 4548-4) 6.8 % 4-5.6 rflxH. simplex/VZ Virus Cult/[id number] 10:39:00 Test Item Value Reference Range Comments Herpes simplex/VZV Cult/Dif (test code = TNP 999933) Source (test code = 019486) Not Provided CBC with [id number] 10:39:00 Test Item Value Reference Range Comments Lyman % (test code = 956212) 7 % Absolute Neut (test code = 20737 cells/uL 8922-0053 567590) Absolute Lyman (test code = 1505 cells/uL 200-950 050669) Hematocrit (test code = 442041) 44.9 % 35.0-45.0 RDW (test code = 651039) 14.6 % 11.0-15.0 Platelet Count (test code = 221 K/uL 140-400 231307) Hemoglobin (test code = 220872) 15.3 g/dL 11.7-15.5 Eos % (test code = 983617) 0 % WBC (test code = 291584) 21.5 K/uL 3.8-10.8 MCV (test code = 195118) 89.1 fL 80.0-100.0 MCHC (test code = 220858) 34.1 g/dL 32.0-36.0 Smear Review (test code = Criteria for review not met 014057) RBC (test code = 808581) 5.04 MIL/uL 3.80-5.10 Lymph % (test code = 326206) 6 % MCH (test code = 938846) 30.4 pg 27.0-33.0 Absolute Baso (test code = 0 cells/uL 0-200 449749) Neutrophils % (test code = 87 % 660498) Absolute Lymph (test code = 1290 cells/uL 850-3900 233553) Baso % (test code = 265186) 0 % MPV (test code = 832161) 10.3 fL 7.5-12.5 Absolute Eos (test code = 0 cells/uL 15-500 586989) Culture, [id number] 10:39:00 Test Item Value Reference Range Comments FINAL REPORT (test code = FR) NO GROWTH Comprehensive Virus [id number] 10:39:00 Test Item Value Reference Range Comments History: (test code = 610415) L03.211 Relevant vaccination: (test code = 042876) UNKNOWN History: (test code = 521348) L03.211 Suspected Viruses: (test code = 003421) L03.211 Preliminary Diagnosis: (test code = 782940) L03.211 Viral Culture (test code = 202782) REPORT Source (test code = 998305) Nose BMP with Estimated [id number] 10:39:00 Test Item Value Reference Range Comments Potassium (test code = 528587) 4.0 mmol/L 3.5-5.3 Creatinine (test code = 373102) 1.02 mg/dL 0.50-1.05 Glucose (test code = 545724) 145 mg/dL 65-99 Calcium (test code = 471623) 9.3 mg/dL 8.6-10.4 CO2 (test code = 690290) 24 mmol/L 20-31 BUN (test code = 865448) 15 mg/dL 7-25 Est GFR, (test code = 578170) 73 mL/min > =60 Sodium (test code = 505010) 133 mmol/L 135-146 Est GFR, NonAfrican Macedonian (test code = 360967) 63 mL/min >=60 Chloride (test code = 691421) 98 mmol/L 98-110 Rapid Strep\S\2017-09-05 13:25:00 Test Item Value Reference Range Comments Rapid Strep (test code = RAPIDSTREP) negative N/A Hemoglobin A1c with [id number] 08:34:00 Test Item Value Reference Range Comments eAG (calc) (test code = 772612) 123 mg/dL Hemoglobin A1C (test code = 267868) 5.9 % <5.7 CBC with [id number] 08:34:00 Test Item Value Reference Range Comments Hematocrit (test code = 700312) 45.1 % 35.0-45.0 MPV (test code = 184686) 10.4 fL 7.5-12.5 MCHC (test code = 976988) 33.5 g/dL 32.0-36.0 Absolute Lyman (test code = 390 cells/uL 200-950 012310) Lymph % (test code = 941928) 33 % Baso % (test code = 503550) 1 % Absolute Lymph (test code = 2145 cells/uL 850-3900 339350) Absolute Neut (test code = 3705 cells/uL 2721-3197 299656) Neutrophils % (test code = 57 % 036721) WBC (test code = 601018) 6.5 K/uL 3.8-10.8 RBC (test code = 687763) 4.90 MIL/uL 3.80-5.10 Hemoglobin (test code = 961178) 15.1 g/dL 11.7-15.5 Eos % (test code = 489778) 3 % MCH (test code = 416445) 30.8 pg 27.0-33.0 RDW (test code = 187254) 14.1 % 11.0-15.0 Absolute Baso (test code = 65 cells/uL 0-200 454148) Absolute Eos (test code = 195 cells/uL 15-500 668505) MCV (test code = 804897) 92.0 fL 80.0-100.0 Platelet Count (test code = 180 K/uL 140-400 853561) Lyman % (test code = 471349) 6 % Smear Review (test code = Criteria for review not met 529882) [id number] 08:34:00 Test Item Value Reference Range Comments TSH (test code = 736878) 1.23 mIU/L CMP with Estimated [id number] 08:34:00 Test Item Value Reference Range Comments Est GFR, NonAfrican Macedonian (test code = 468304) 64 mL/min >=60 Calcium (test code = 511797) 9.5 mg/dL 8.6-10.4 Creatinine (test code = 779168) 1.01 mg/dL 0.50-1.05 CO2 (test code = 041116) 28 mmol/L 20-31 Chloride (test code = 935259) 101 mmol/L 98-110 Albumin (test code = 264795) 4.5 g/dL 3.6-5.1 Bilirubin, Total (test code = 094126) 0.5 mg/dL 0.2-1.2 Potassium (test code = 038475) 4.2 mmol/L 3.5-5.3 BUN (test code = 124416) 19 mg/dL 7-25 ALT/SGPT (test code = 415738) 36 U/L 6-29 Total Protein (test code = 076766) 7.3 g/dL 6.1-8.1 AST/SGOT (test code = 776122) 30 U/L 10-35 Glucose (test code = 908100) 110 mg/dL 65-99 Alkaline Phosphatase (test code = 324517) 34 U/L 33-130 Sodium (test code = 926759) 139 mmol/L 135-146 Est GFR, (test code = 787609) 73 mL/min > =60 FSH (Follicle Stimulating Hormone)2017-05-15 08:34:00 Test Item Value Reference Range Comments FSH (test code = 318381) 98.0 mIU/mL C-Reactive Protein (CRP)2017-05-15 08:34:00 Test Item Value Reference Range Comments CRP (C-Reactive Protein) (test code = 277658) 0.5 mg/dL <0 .60 Sed Rate (ESR)2017-05-15 08:34:00 Test Item Value Reference Range Comments Sed Rate (ESR) (test code = 672501) 11 mm/hr 0-30 Lipid [id number] 08:34:00 Test Item Value Reference Range Comments LDL Cholesterol (Calc) (test code = 645582) 132 mg/dL <130 Triglycerides (test code = 973782) 230 mg/dL <150 Total Chol/HDL Ratio (test code = 601195) 5.0 Ratio <=5.0 Cholesterol (test code = 880213) 223 mg/dL 125-200 VLDL Cholesterol (Calc) (test code = 578905) 46 mg/dL <30 HDL Cholesterol (test code = 288878) 45 mg/dL >=46 Assessments Condition Name Status Diagnosis Date Treating Clinici an Type 2 diabetes mellitus without Active complications Encntr screen mammogram for malignant Active neoplasm of breast Essential (primary) hypertension Active Mixed hyperlipidemia Active Mortons neuroma of left foot Active 2019-08-29 14:16:20 Foot pain Active 2019-08-29 14:16:24 Type 2 diabetes mellitus without Active complications Obesity, unspecified Active Mixed hyperlipidemia Active Essential (primary) hypertension Active Obesity, unspecified Active Type 2 diabetes mellitus without Active complications Essential (primary) hypertension Active Mixed hyperlipidemia Active New daily persistent headache (NDPH) Active Prediabetes Active Obesity, unspecified Active Menopausal and female climacteric Active states Encounters Start End Encounter Admission Attending Care Care Encounter Date/Time Date/Time Type Type Clinicians Facility Department ID 2020-07-28 2020-07-[facility] [id number] 13:00:00 13:00:00 Elmira Francisco???s [id number] and [id number] [facility] [id number] Clini 2019-08-29 2019-08-29 [facility], [id number] 00:00:00 00:00:00 Rafy llamas, P.A. P.A. [id number] WADE Garcia: [id number] [facility] [place] [address], Ph. 2018-12-25 2018-12-25 [facility] [id number] 08:00:00 08:00:00 Elmira Francisco [id number] s [id number] and [id number] [facility], 2018-09-20 2018-09-20 [facility] [id number] 08:00:00 08:00:00 Elmira Francisco [id number] s [id number] and [id number] [facility], [place] 2017-05-15 2017-05-15 [facility] 6 [id number] 08:15:00 08:15:00 Elmira Francisco [id number] s [id number] and [id number] [facility], [place] Social History Smoking Status Start Date Stop Date Former Smoker Vital Signs This patient has no known vital signs. Hospital Discharge Instructions 1. Mortons neuroma of left foot 2. Foot pain Discussion Note: None recorded. Patient educational handouts: No information available.
== END ==
LOC: WI 08:11
PROVIDERS: ATTEND Family Medicine
DX: Z12.31 Encounter for screening mammogram for malignant neoplasm of breast (principal)
CPT/HCPCS: 77063; 77067

== ENCOUNTER 2020-09-08 07:09 | Emergency (ER) | payer OTHER ==
[2020-09-08] MEDS ORDERED: AMPICILLIN SOD/SULBACTAM 3 GM VIAL IV ONE (09:04)
--- NOTE | 2020-09-08 09:30 | ER Document Report ---
ED General - General Chief Complaint: Rash Stated Complaint: rash face swelling Primary Care Provider: ELMIRA HUNT DO [Primary Care Provider] - Follow up as needed TRAVEL OUTSIDE OF THE [place] IN LAST 30 DAYS: No - HPI Notes: Chief Complaint: Facial rash Historian: History obtained from patient HPI: This is a 85-year-old female presents to the ER complaining of a facial rash x3 days. Patient says it starts small over the bridge of her nose yesterday and has since rapidly spread and covered bilat maxillary areas that appears like a malar rash. Pt c/o pain to rash. She had a small sore to the edge of her right nare from blowing her nose before this began but it has since resolved. Associated mild CHAPMAN. no fever/chills. no hx of lupus or autoimmune dz. Recently diagnosed w/ DM and started oral meds, did not check BS today but says it has been well controlled. She was admitted to the hospital in 2017 for an almost identical rash. Says she was treated w/ IV abx and steroids for suspected erysipelas/cellulitis and then d/c w/ the same. Pt has not taken any antibiotics or tried any other treatments for this current rash. ROS: Constitutional: no fevers. HEENT: mild CHAPMAN, facial rash CV: no chest pain or palpitations. Resp: no cough or SOB. GI: no abdominal pain, or n/v/d. : no dysuria, hematuria, or incont. MSK: no back pain, no joint swelling/redness. Skin: red raised facial rash Neuro: no seizures, weakness, numbness, or confusion. Hematological: no ecchymosis or easy bleeding. Endocrine: no polyuria/polydipsia, no heat/cold intolerance. Psych: no SI/HI, AH/VH or memory loss. PMHx: Reviewed and agree as charted by RN. PSHx: Reviewed and agree as charted by RN. SOCHx: Reviewed and agree as charted by RN. FHX: No significant familial comorbid conditions directly related to patient complaint Current Medications: Reviewed and agree with the patient medications as charted by the RN. Allergies: Reviewed and agree with the listed allergies as charted by the RN Physical Exam: Vitals: Reviewed in chart as documented by RN. General: Alert and in NAD. Head: erythematous, raised, confluent rash in butterfly/malar distribution. blanchable. mildly ttp. no open wounds, fluctuance, or drainage. Eyes: PERRLA, Conjunctivae clear sclerae non-icteric bilat ENT: no soft palate swelling or uvular deviation Neck: trachea midline, no unilateral swelling/tenderness/lymphadenopathy CV: RRR, no M/R/G; symmetric distal pulses Resp: respirations even and unlabored, CTA bilat. GI: abd soft and nondistended. NTTP. normal BS. no masses/HSM. no CVAT bilat MSK: FROM of all extremities. No midline CTL spine tenderness/deformity Skin: warm, moist, good turgor. no rash/lesions Neuro: Alert and oriented X 4. following CN 2-12 intact. no unilateral weakn ess/numbness Psych: No SI/HI or AH/VH. ED Results: Medical Decision-Making: Medical Decision-making/Differential Diagnosis: Consider various etiologies including but not limited to skin/soft tissue structure infection, cellulitis, erysipelas, sepsis syndromes, focal abscess lupus, dermatomyositis, other autoimmune condition, dermatitis, ect plan - reviewed chart from prior hospitilization in 2017 for similar symptoms. differential included erysipelas/cellulitis and pt was treated w/ unasyn and steroids and had rapid improvement and d/c w/ augmentin and prednisone- although she had failed 5 days of bactrim/keflex prior to her ER visit at the time. I discussed case w/ Dr Georges- will get basic labs as well as CK and VISHNU to evaluate for possible autoimmune malar rash. Unasyn 3gm IV ordered. Dr Georges will evaluate pt after lab results to determine further treatment plan and di sposition. Diagnosis: Condition: Disposition: - Related Data Allergies/Adverse Reactions: No Known Allergies Allergy (Verified 09/08/20 11:28) Past Medical History - Social History Smoking Status: Unknown if Ever Smoked Family History: Reviewed & Not Pertinent - Past Medical History Cardiac Medical History: Reports: Hx Hypercholesterolemia, Hx Hypertension Denies: Hx Coronary Artery Disease, Hx Heart Attack Pulmonary Medical History: Denies: Hx Asthma, Hx Bronchitis, Hx COPD, Hx Pneumonia Neurological Medical History: Denies: Hx Cerebrovascular Accident, Hx Seizures Renal/ Medical History: Denies: Hx Peritoneal Dialysis Musculoskeletal Medical History: Denies Hx Arthritis Past Surgical History: Reports: Hx Section - x2, Hx Cholecystectomy, Hx Hysterectomy. Denies: Hx Pacemaker - Immunizations Hx Diphtheria, Pertussis, Tetanus Vaccination: Yes Hx Pneumococcal Vaccination: 06/25/11 Physical Exam - Vital signs Vitals: Temp Pulse Resp BP Pulse Ox 98.8 F 112 H 16 142/95 H 99 09/08/20 07:16 09/08/20 07:16 09/08/20 07:16 09/08/20 07:16 09/08/20 07:16 Course - Re-evaluation Re-evalutation: labs reviewed- WBC 9. CRP 62. CK 62. ESR 53. VISHNU still pending. still unsure of etiology pts rash and whether infectious vs possible inflammatory. PT has recieved IV Unasyn 3gm so far. Discussed care extensively w/ Dr Georges who also evaluated the pt. Recommended I consult hospitalist to discuss if they'd recommend inpt vs oupt management. 09/08/20 15:33 consulted hospitalist possible admission vs outpt trial of abx/steroids. 09/08/20 15:40 09/08/20 15:41 spoke w/ Dr Patel- hospitalist- will provide ED consult. based on our discussion, normal wbc, and elevated inflamm markers, recommends outpt treatment for suspected inflammatory/autoimmune rash w/rheumatology f/u. will treat w/ 10 day prednisone taper as well as 5 days of augmentin. pt given single dose of IV solumedrol 125mg prior to discharge. updated pt and she agrees w plan of care. 09/08/20 17:00 - Vital Signs Vital signs: Temp Pulse Resp BP Pulse Ox 98.4 F 87 18 146/74 H 98 09/08/20 13:18 09/08/20 13:18 09/08/20 13:18 09/08/20 13:18 09/08/20 13:18 - Laboratory Results Result Diagrams: 09/08/20 11:23 09/08/20 11:23 Laboratory Results Interpreted: 09/08/20 09/08/20 09/08/20 11:23 11:23 13:51 RDW 15.1 H ESR 53 H Sodium 134.6 L Glucose 123 H AST 50 H ALT 37 H C-Reactive Protein 62.8 H Critical Laboratory Results Reviewed: Yes Attending or Supervising Physician who Reviewed Labs: JIMI GEORGES - aware of elevated inflammatory markers - Radiology Results Critical Radiology Results Reviewed: No Critical Results Discharge - Discharge Clinical Impression: Facial rash, CRP elevated Condition: Stable Disposition: HOME, SELF-CARE Additional Instructions: Follow up with your primary care doctor as soon as possible for recheck and to set up a rheumatology visit. I listed a local doctors information w/ [facility] you can call to see if they are willing to see you. take medications as prescribed. return to the ER immediately if you have fever, chills, vision changes, confusion, neurologic changes, or worsening rash. Prescriptions: Amoxicillin/Potassium Clav [Augmentin 875-125 Tablet] 1 tab PO Q12 #10 tablet Dexamethasone [Dexpak] 1.5 mg PO ASDIR 10 Days #1 tab.ds.pk Forms: Return to Work Referrals: ELMIRA HUNT DO [Primary Care Provider] - Follow up as needed MANDEEP PACHECO MD [ACTIVE STAFF] - Follow up as needed
[2020-09-08 12:00] LABS: ABSOLUTE LYMPHOCYTES (AUTO) 1.5 10^3/uL (0.5-4.7); ABSOLUTE MONOCYTES (AUTO) 0.8 10^3/uL (0.1-1.4); ABSOLUTE NEUT (AUTO) 6.7 10^3/uL (1.7-8.2); BASOPHILS % (AUTO) 0.3 % (0-2); EOSINOPHILS % (AUTO) 0.3 % (0-6); HEMATOCRIT 44.7 % (36.0-47.0); HEMOGLOBIN 15.5 g/dL (12.0-15.5); LYMPHOCYTES % (AUTO) 16.8 % (13-45); MEAN CORPUSCULAR HEMOGLOBIN 30.3 pg (27.0-33.4); MEAN CORPUSCULAR HGB CONC 34.6 g/dL (32.0-36.0); MEAN CORPUSCULAR VOLUME 88 fl (80-97); MONOCYTES % (AUTO) 8.9 % (3-13); PLATELET COUNT 174 10^3/uL (150-450); RED CELL DISTRIBUTION WIDTH 15.1 % (11.5-14.0); SEGMENTED NEUTROPHILS % (AUTO) 73.7 % (42-78); TOTAL CELLS COUNTED % (AUTO) 100 %; WHITE BLOOD COUNT 9.1 10^3/uL (4.0-10.5)
[2020-09-08 12:19] LABS: ALBUMIN 4.6 g/dL (3.5-5.0); ALKALINE PHOSPHATASE 62 U/L (38-126); ANION GAP 9 (5-19); ASPARTATE AMINO TRANSFERASE 50 U/L (14-36); BILIRUBIN,DIRECT 0.3 mg/dL (0.0-0.4); BILIRUBIN,TOTAL 0.9 mg/dL (0.2-1.3); BLOOD UREA NITROGEN 13 mg/dL (7-20); C-REACTIVE PROTEIN 62.8 mg/L (<10.0); CALCIUM 9.8 mg/dL (8.4-10.2); CARBON DIOXIDE 27 mmol/L (22-30); CHLORIDE 99 mmol/L (98-107); CREATINE KINASE 62 U/L (30-135); GLUCOSE 123 mg/dL (75-110); POTASSIUM 3.9 mmol/L (3.6-5.0); TOTAL PROTEIN 8.2 g/dL (6.3-8.2)
[2020-09-08 13:19] VITALS: BP 146/74
--- NOTE | 2020-09-08 15:41 | ER Document Report ---
Doctor's Note Notes: 09/08/20 15:38 56-year-old female that I was asked to see and assess by the SUMIT. Onset yesterday of some swelling underneath bilateral eyes. No fevers, vomiting, double or blurry vision, cough, sore throat, shortness of breath, or rash or any other location. Similar symptomatology in 2017 that was more expansive. She s howed me a picture. She was treated with antibiotics and admitted here with quick resolution. They also added steroids at that time. No further investigation was performed as an outpatient. They felt that the patient possibly had facial cellulitis. On examination patient has redness with some fullness with no fluctuance or induration in a malar distributive pattern. Full extraocular range of motion with no pain. Neck is soft and supple. No cervical lymphadenopathy. No posterior pharyngeal lesions or mouth lesions present. Heart lung examination is unremarkable. Abdomen is soft and nontender. No lower extremity edema or skin lesions present otherwise. Given the history and physical we did order basic labs, sed rate, C-reactive protein, and CK total. We would like to evaluate for the possibility of cellulitis, possible autoimmune disease such as lupus, dermatomyositis, or other acute problems. Given the previous extensive history that rapidly progressed, we did talk to the hospitalist who will come down to evaluate the patient for possible admission. CRP and sedimentation rate as recorded.
--- NOTE | 2020-09-08 16:41 | PDOC CONSULTATION ---
Consultation Consult Date: 09/08/20 Provider Consulted: DOUGLAS CHAPMAN History of Present Illness Admission Date/PCP: ELMIRA HUNT DO Patient complains of: facial rash History of Present Illness: ROMARIO AREVALO is a 55 year old female with PMH of HTN, HLD, DM2 who presented to the ED with facial rash x2 days. The rash is dark red in color and starts from beneath her bottom eyelids to her bilateral nasolabial folds. The onset was rapid (she woke up with it). She denies rash in any other location, denies body aches, joint aches, weakness, ulcers in mucous membranes (oral or vaginal), or photosensitivity. She denies swelling in mouth or throat, difficulty swallowing, vision changes, sore throat. She had a very similar rash in 2017 which was treated with steroids/antibiotics and resolved. No further investigation was performed after the resolution of her rash in 2017. She has no known family history of rheumatologic disorders. Past Medical History Cardiac Medical History: Reports: Hyperlipidema, Hypertension Denies: Coronary Artery Disease, Myocardial Infarction Pulmonary Medical History: Denies: Asthma, Bronchitis, Chronic Obstructive Pulmonary Disease (COPD), Pneumonia Neurological Medical History: Denies: Seizures Endocrine Medical History: Reports: Diabetes Mellitus Type 2 Musculoskeltal Medical History: Denies: Arthritis Hematology: Denies: Anemia Past Surgical History Past Surgical History: Reports: Section - x2, Cholecystectomy, Hysterectomy Denies: Pacemaker Social History Information Source: Patient Lives with: Spouse/Significant other Smoking Status: Former Smoker Frequency of Alcohol Use: Rare Hx Recreational Drug Use: No Drugs: None Hx Prescription Drug Abuse: No Family History Family History: Reviewed & Not Pertinent Parental Family History Reviewed: Yes Children Family History Reviewed: Yes Sibling(s) Family History Reviewed.: Yes Medication/Allergy Home Medications: Aspirin [Aspirin 81 mg Chewable Tablet] 81 mg PO DAILY 09/16/17 Cinnamon Bark [Cinnamon Bark 500 mg Capsule] 500 mg PO DAILY 09/16/17 Cyanocobalamin (Vitamin B-12) [Vitamin B-12 1000 mcg Tablet] 1,000 mcg PO DAILY 09/16/17 Multivit with Calcium,Iron,Min [Multiple Vitamins For Women] 1 each PO DAILY 09/16/17 Raymond-3 Fatty Acids/Fish Oil [Fish Oil 1,000 mg Capsule] 4 cap PO DAILY 12/23/17 Phentermine HCl 37.5 mg PO DAILY 09/16/17 Amoxicillin/Potassium Clav [Augmentin 875-125 Tablet] 1 each PO BID #20 tablet 09/17/17 Prednisone 10 mg PO DAILY #39 tablet 09/17/17 Allergies/Adverse Reactions: No Known Allergies Allergy (Verified 09/08/20 11:28) Review of Systems Constitutional: PRESENT: fever(s) - low grade fevers yesterday. ABSENT: fatigue, night sweats, weakness Eyes: ABSENT: visual disturbances Nose, Mouth, and Throat: ABSENT: mouth pain, sore throat Cardiovascular: ABSENT: chest pain, dyspnea on exertion, edema, orthropnea, palpitations Respiratory: ABSENT: dyspnea Gastrointestinal: ABSENT: abdominal pain Musculoskeletal: ABSENT: back pain, joint swelling, muscle weakness Integumentary: ABSENT: pruritus Neurological: ABSENT: confusion, convulsions, frequent falls, syncope, weakness Hematologic/Lymphatic: ABSENT: easy bruising, lymphadenopathy Physical Exam Vital Signs: Temp Pulse Resp BP Pulse Ox 98.4 F 87 18 146/74 H 98 09/08/20 13:18 09/08/20 13:18 09/08/20 13:18 09/08/20 13:18 09/08/20 13:18 Intake & Output 09/07/20 09/08/20 09/09/20 06:59 06:59 06:59 Weight 84 kg General appearance: PRESENT: no acute distress, cooperative Head exam: PRESENT: atraumatic Eye exam: ABSENT: conjunctival injection, periorbital swelling Throat exam: ABSENT: post pharyngeal erythema Neck exam: ABSENT: JVD Respiratory exam: PRESENT: clear to auscultation chelle, unlabored Cardiovascular exam: PRESENT: RRR GI/Abdominal exam: PRESENT: normal bowel sounds, soft. ABSENT: tenderness Extremities exam: PRESENT: full ROM. ABSENT: joint swelling, pedal edema Musculoskeletal exam: PRESENT: ambulatory Neurological exam: PRESENT: alert, awake, oriented to person, oriented to place, oriented to time, oriented to situation, CN II-XII grossly intact Psychiatric exam: PRESENT: appropriate affect Skin exam: PRESENT: rash - dusky red malar rash that involves nasolabial folds bilaterally, no ulcerations or pus, no fluctuance, well defined Results Laboratory Results: 09/08/20 11:23 09/08/20 11:23 12/15/20 12/15/20 11:23 11:23 WBC 9.1 RBC 5.10 Hgb 15.5 Hct 44.7 MCV 88 MCH 30.3 MCHC 34.6 RDW 15.1 H Plt Count 174 Seg Neutrophils % 73.7 Sodium 134.6 L Potassium 3.9 Chloride 99 Carbon Dioxide 27 Anion Gap 9 BUN 13 Creatinine 0.83 Est GFR ( Amer) > 60 Glucose 123 H Calcium 9.8 Total Bilirubin 0.9 AST 50 H Alkaline Phosphatase 62 C-Reactive Protein 62.8 H Total Protein 8.2 Albumin 4.6 09/08/20 11:23 Creatine Kinase 62 Assessment and Plan - Diagnosis (1) Malar rash Is this a current diagnosis for this admission?: Yes (2) CRP elevated Is this a current diagnosis for this admission?: Yes (3) ESR raised Is this a current diagnosis for this admission?: Yes (4) LFT elevation Is this a current diagnosis for this admission?: Yes - Plan Summary Summary: ROMARIO AREVALO is a 55 year old female with PMH of HTN, HLD, DM2 who presented to the ED with facial rash x2 days. The rash is dusky red in color and starts from beneath her bottom eyelids to her bilateral nasolabial folds. The onset was rapid (she woke up with it). She denies rash in any other location, denies body aches, joint aches, weakness, ulcers in mucous membranes (oral or vaginal), or photosensitivity. She denies swelling in mouth or throat, difficulty swallowing, vision changes, sore throat. She had a very similar rash in 2017 which was treated with steroids/antibiotics and resolved. No further investigation was performed after the resolution of her rash in 2017. She has no known family his tory of rheumatologic disorders. She has not recently started any medications (Rx or OTC), new lotions, soaps or cleaning products. VS are within normal limits. She is afebrile. CBC is normal and shows no evidence of anemia, thrombocytopenia, etc. CMP is notable for very mildly elevated LFTs. ESR and CRP are impressively elevated. CK is normal. VISHNU is pending. Differential diagnoses include SLE, dermatomyositis, other rheum illness and erysipelas. SLE is unlikely given that her rash involves the nasolabial folds. Dermatomyositis is unlikely given lack of other derm or muscle findings on exam, with normal CK. She may very well have some type of rheumatologic disease and I advised her that she would benefit from outpatient rheum follow up for further work up. In the meantime, it is not unreasonable to treat with a short course of oral antibiotics/steroids and close outpatient follow up. I also advised her to start aggressively moisturizing her skin with vaseline to prevent skin sloughing and cracking. Recommendations discussed with ED provider and patient at length. Thank you for this interesting consult. Please feel free to call with any questions. - Time Time Spent with patient: 35 or more minutes Anticipated Discharge Disposition: Home, Self Care Anticipated Discharge Timeframe: within 24 hours
[2020-09-08] MEDS ORDERED: METHYLPREDNISOLONE INJ 125 MG/2 ML SDV IV ONE (16:59)
[2020-09-09 15:08] LABS: ANTINUCLEAR ANTIBODIES Negative (Negative)
== END 2020-09-08 18:10 | disposition home or self-care (01) ==
LOC: ER 07:09
DX: R21 Rash and other nonspecific skin eruption (principal); R79.89 Other specified abnormal findings of blood chemistry; E78.00 Pure hypercholesterolemia, unspecified; I10 Essential (primary) hypertension; E11.9 Type 2 diabetes mellitus without complications; Z90.49 Acquired absence of other specified parts of digestive tract; Z90.710 Acquired absence of both cervix and uterus
CPT/HCPCS: 99284; 96375; 96365; 36415; 82550; 85025; 85652; 86140; 80053; 86038; J0295; J2930